=== PATIENT | male | born 2000 | race Two or more races ===

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

== ENCOUNTER 2022-06-14 12:47 | Emergency (ER) | payer MEDICAID, OTHER ==
[~2022-06-14] VITALS: Ht 180.3 cm; Wt 115.9 kg
[2022-06-14 13:02] VITALS: BP 140/90
== END 2022-06-14 14:51 | disposition home or self-care (01) ==
LOC: ER 12:47
DX: M54.59 Other low back pain (principal); J45.909 Unspecified asthma, uncomplicated; F41.9 Anxiety disorder, unspecified; Z87.81 Personal history of (healed) traumatic fracture; Z79.899 Other long term (current) drug therapy; W10.8XXA Fall (on) (from) other stairs and steps, initial encounter; Y93.89 Activity, other specified; Y92.89 Other specified places as the place of occurrence of the external cause; Y99.8 Other external cause status
CPT/HCPCS: 99284

== ENCOUNTER 2023-06-22 22:35 | Emergency (ER) | payer MEDICAID ==
[~2023-06-22] VITALS: Ht 180.3 cm; Wt 120.5 kg
[~2023-06-22 22:35] MED LIST changes: +ALBU6.7H14 INH; -ALBU6.7H9 INH
[2023-06-22] MEDS ORDERED: normal saline 1000ml 1,000 ML IV ONE (23:35)
[2023-06-22] MEDS ORDERED: piperacillin/tazo 3.375gm/50ml 50 ML IV ONE (23:35)
[2023-06-23 00:05] LABS: BASOPHILS # (AUTO) 0.2 X10'3 (0-0.2); BASOPHILS % (AUTO) 0.9 % (0-1); EOSINOPHILS # (AUTO) 0.3 X10'3 (0-0.9); HEMATOCRIT 40.9 % (42.0-52.0); HEMOGLOBIN 13.9 g/dl (14.0-17.9); LYMPHOCYTES # (AUTO) 2.5 X10'3 (1.1-4.8); MEAN CORPUSCULAR HEMOGLOBIN 29.8 PG (27.0-31.0); MEAN CORPUSCULAR VOLUME 87.6 FL (78-98); MEAN PLATELET VOLUME 7.3 FL (7.4-10.4); MONOCYTES # (AUTO) 1.1 X10'3 (0-0.9); MONOCYTES % (AUTO) 6.8 % (2-12); NEUTROPHILS # (AUTO) 12.7 X10'3 (1.8-7.7); NEUTROPHILS % (AUTO) 75.3 % (42-75); PLATELET COUNT 369 X10'3 (140-440); RED BLOOD COUNT 4.67 X10'6 (4.70-6.10); WHITE BLOOD COUNT 16.9 X10'3 (4.5-11.0)
[2023-06-23 00:09] LABS: ALANINE AMINOTRANSFERASE 19 U/L (12-78); ALBUMIN 3.2 G/DL (3.4-5.0); ALBUMIN/GLOBULIN RATIO 0.5 (1.1-1.5); ALKALINE PHOSPHATASE 81 IU/L (46-116); ANION GAP 12 (8-16); ASPARTATE AMINO TRANSFERASE 10 U/L (10-37); BILIRUBIN,TOTAL 0.4 MG/DL (0.1-1.0); BLOOD UREA NITROGEN 8 MG/DL (7-18); BUN/CREATININE RATIO 8.8 (10.0-20.0); CALCIUM 9.4 MG/DL (8.5-10.1); CHLORIDE 103 MMOL/L (99-107); CREATININE 0.91 MG/DL (0.60-1.10); GLUCOSE 91 MG/DL (70-104); LIPASE 51 U/L (73-393); POTASSIUM 3.4 MMOL/L (3.5-5.1); SODIUM 138 MMOL/L (135-145); TOTAL CARBON DIOXIDE 23.3 MMOL/L (24-32); TOTAL PROTEIN 9.5 G/DL (6.4-8.2); eGFR > 90 ML/MIN
[2023-06-23 01:30] VITALS: O2SAT 92
[2023-06-23] MEDS ORDERED: ceFAZolin 1gm IM kit IM ONE (02:30)
[2023-06-23 02:40] VITALS: BP 133/81; PULSE 75
[2023-06-23 03:18] LABS: CLARITY,URINE CLEAR (Clear); COLOR,URINE YELLOW (Yellow); GLUCOSE, URINE NEGATIVE (Neg); KETONES,URINE >=80 mg/dl (Neg); LEUKOCYTE ESTERASE ,URINE NEGATIVE (Neg); NITRITES, URINE NEGATIVE (Neg); OCCULT BLOOD,URINE TRACE-INTACT (Neg); PH,URINE 6.5 (4.8-8.0); PROTEIN,URINE TRACE mg/dl (Neg)
[2023-06-23 03:28] LABS: UA COLLECTION TYPE CLN CATCH MIDSTREAM
[2023-06-23 03:34] LABS: WBC,URINE 0-4 /HPF (0-4)
[2023-06-23 03:35] LABS: BACTERIA,URINE FEW /HPF (Neg); MUCUS STRANDS FEW /LPF (Neg); SQUAMOUS EPITHELIAL CELL,UR FEW /LPF (FEW)
[2023-06-23 03:52] VITALS: RESP 14
[2023-06-23 03:54] VITALS: TEMP 97.5
== END 2023-06-23 03:56 | disposition home or self-care (01) ==
LOC: ER 22:36
DX: D72.829 Elevated white blood cell count, unspecified (principal); J45.909 Unspecified asthma, uncomplicated; F41.9 Anxiety disorder, unspecified; Z87.81 Personal history of (healed) traumatic fracture; Z79.899 Other long term (current) drug therapy
CPT/HCPCS: 36415; 74176; 76700; 80053; 81001; 83605; 83690; 84145; 85025; 87040; 96365; 96366; 99285; J2543; J7030

== ENCOUNTER 2023-09-03 22:20 | Emergency (ER) | payer OTHER, MEDICAID ==
[~2023-09-03] VITALS: Ht 180.3 cm; Wt 120.5 kg
[2023-09-04 00:27] VITALS: BP 134/87; PULSE 90; RESP 18; TEMP 98.1; O2SAT 98
== END 2023-09-04 01:40 | disposition left against medical advice (07) ==
LOC: ER 22:20
DX: M25.512 Pain in left shoulder (principal); J45.909 Unspecified asthma, uncomplicated; Z79.899 Other long term (current) drug therapy; V89.2XXA Person injured in unspecified motor-vehicle accident, traffic, initial encounter; Y93.89 Activity, other specified; Y92.89 Other specified places as the place of occurrence of the external cause; Y99.8 Other external cause status
CPT/HCPCS: 70450; 72125; 73030; 99284

== ENCOUNTER 2023-11-21 01:44 | Emergency (ER) | payer MEDICAID ==
[~2023-11-21] VITALS: Ht 180.3 cm; Wt 115.4 kg
[2023-11-21 01:52] VITALS: BP 135/91; PULSE 102; RESP 16; TEMP 98.2; O2SAT 98
== END 2023-11-21 04:33 | disposition left against medical advice (07) ==
LOC: ER 01:45
DX: M54.6 Pain in thoracic spine (principal); Z53.21 Procedure and treatment not carried out due to patient leaving prior to being seen by health care provider
CPT/HCPCS: 99281

== ENCOUNTER 2023-12-04 21:50 | Emergency (ER) | payer MEDICAID ==
[~2023-12-04] VITALS: Ht 180.3 cm; Wt 115.0 kg
[2023-12-04 22:04] VITALS: BP 108/81; PULSE 108; RESP 20; TEMP 98; O2SAT 99
[2023-12-04 22:26] LABS: RED CELL DISTRIBUTION WIDTH 13.9 % (11.5-14.5)
[2023-12-04 22:28] LABS: BASOPHILS # (AUTO) 0.1 X10'3 (0-0.2); BASOPHILS % (AUTO) 0.6 % (0-1); EOSINOPHILS # (AUTO) 0.8 X10'3 (0-0.9); EOSINOPHILS % (AUTO) 4.2 % (0-6); HEMOGLOBIN 15.1 g/dl (14.0-17.9); LYMPHOCYTES # (AUTO) 2.9 X10'3 (1.1-4.8); LYMPHOCYTES % (AUTO) 15.4 % (21-51); MEAN CORPUSCULAR HEMOGLOBIN 30.5 PG (27.0-31.0); MEAN CORPUSCULAR HGB CONC 34.3 g/dL (33.0-36.5); MEAN CORPUSCULAR VOLUME 88.8 FL (78-98); MEAN PLATELET VOLUME 7.1 FL (7.4-10.4); MONOCYTES # (AUTO) 1.2 X10'3 (0-0.9); MONOCYTES % (AUTO) 6.4 % (2-12); NEUTROPHILS # (AUTO) 13.6 X10'3 (1.8-7.7); NEUTROPHILS % (AUTO) 73.4 % (42-75); PLATELET COUNT 424 X10'3 (140-440); RED BLOOD COUNT 4.96 X10'6 (4.70-6.10); WHITE BLOOD COUNT 18.6 X10'3 (4.5-11.0)
[2023-12-04 22:39] LABS: ALANINE AMINOTRANSFERASE 26 U/L (12-78); ALBUMIN 3.1 G/DL (3.4-5.0); ALBUMIN/GLOBULIN RATIO 0.4 (1.1-1.5); ALKALINE PHOSPHATASE 103 IU/L (46-116); ANION GAP 8 (8-16); ASPARTATE AMINO TRANSFERASE 16 U/L (10-37); BILIRUBIN,TOTAL 0.3 MG/DL (0.1-1.0); BLOOD UREA NITROGEN 7 MG/DL (7-18); BUN/CREATININE RATIO 8.1 (10.0-20.0); CALCIUM 9.2 MG/DL (8.5-10.1); CHLORIDE 102 MMOL/L (99-107); CREATININE 0.86 MG/DL (0.60-1.10); GLUCOSE 100 MG/DL (70-104); LIPASE 29 U/L (16-77); POTASSIUM 3.6 MMOL/L (3.5-5.1); SODIUM 136 MMOL/L (135-145); TOTAL CARBON DIOXIDE 26.3 MMOL/L (24-32); eCRCL 144 ML/MIN; eGFR > 90 ML/MIN
[2023-12-04 22:40] LABS: BILIRUBIN,URINE SMALL (Neg); GLUCOSE, URINE NEGATIVE (Neg); KETONES,URINE NEGATIVE (Neg); LEUKOCYTE ESTERASE ,URINE NEGATIVE (Neg); NITRITES, URINE NEGATIVE (Neg); OCCULT BLOOD,URINE TRACE-INTACT (Neg); PROTEIN,URINE TRACE mg/dl (Neg); UROBILINOGEN,URINE 0.2 E.U/dL (0.2-1.0)
[2023-12-04 22:50] LABS: COLOR,URINE DARK YELLOW (Yellow); UA COLLECTION TYPE CLN CATCH MIDSTREAM
[2023-12-04 22:51] LABS: CLARITY,URINE SLIGHTLY CLOUDY (Clear)
[2023-12-04 22:55] LABS: BACTERIA,URINE 2+ /HPF (Neg); MUCUS STRANDS MANY /LPF (Neg); SQUAMOUS EPITHELIAL CELL,UR MANY /LPF (FEW); WBC,URINE 0-4 /HPF (0-4)
== END 2023-12-05 03:00 | disposition left against medical advice (07) ==
LOC: ER 21:51
DX: R10.9 Unspecified abdominal pain (principal); R11.0 Nausea; Z53.21 Procedure and treatment not carried out due to patient leaving prior to being seen by health care provider
CPT/HCPCS: 36415; 74018; 80053; 81001; 83690; 85025; 99281

== ENCOUNTER 2024-01-17 17:32 | Emergency (ER) | payer MEDICAID ==
[~2024-01-17] VITALS: Ht 180.3 cm; Wt 112.2 kg
[2024-01-17 19:35] VITALS: BP 137/93; PULSE 100; RESP 18; TEMP 98; O2SAT 99
== END 2024-01-17 19:37 | disposition home or self-care (01) ==
LOC: ER 17:33
DX: R10.10 Upper abdominal pain, unspecified (principal); R20.0 Anesthesia of skin; J45.909 Unspecified asthma, uncomplicated; R58 Hemorrhage, not elsewhere classified; Z79.899 Other long term (current) drug therapy
CPT/HCPCS: 99281

== ENCOUNTER 2024-01-30 23:03 | Emergency (ER) | payer MEDICAID ==
[~2024-01-30] VITALS: Ht 180.3 cm; Wt 110.0 kg
[2024-01-30 23:11] VITALS: BP 142/89; PULSE 108; RESP 18; TEMP 98.6; O2SAT 99
[2024-01-30] MEDS ORDERED: MELO-100 PO (23:21)
[2024-01-30] MEDS ORDERED: DICL20GE (23:21)
[2024-01-30] MEDS: ketorolac trometh inj. 60 MG/2 ML VIAL IM ONE (23:42)
== END 2024-01-31 00:01 | disposition home or self-care (01) ==
LOC: ER 23:03
DX: M25.561 Pain in right knee (principal); J45.909 Unspecified asthma, uncomplicated; Z79.899 Other long term (current) drug therapy
CPT/HCPCS: 73564; 96372; 99283; J1885

== ENCOUNTER 2024-02-04 19:53 | Emergency (ER) | payer MEDICAID ==
[~2024-02-04] VITALS: Ht 180.3 cm; Wt 110.0 kg
[~2024-02-04 19:53] MED LIST changes: +DICL20GE; +MELO-100 PO
[2024-02-04 20:00] VITALS: BP 142/60; PULSE 125; RESP 18; TEMP 99.4; O2SAT 98
[2024-02-04] MEDS ORDERED: acetaminophen 1,000mg/100ml IV 100 ML IV ONE (20:45)
[2024-02-04] MEDS: acetaminophen 325mg tablet PO ONE (20:54)
== END 2024-02-04 21:31 | disposition home or self-care (01) ==
LOC: ER 19:54
DX: U07.1 COVID-19 (principal); J45.909 Unspecified asthma, uncomplicated; F41.9 Anxiety disorder, unspecified; Z87.81 Personal history of (healed) traumatic fracture; Z79.899 Other long term (current) drug therapy
CPT/HCPCS: 36415; 87502; 87503; 87811; 99283

== ENCOUNTER 2024-04-14 23:00 | Emergency (ER) | payer MEDICAID ==
[~2024-04-14] VITALS: Ht 180.3 cm; Wt 113.9 kg
[2024-04-14 23:07] VITALS: BP 122/93; PULSE 111; RESP 16; TEMP 98.1; O2SAT 97
[2024-04-14] MEDS: meclizine 12.5mg tablet PO ONE (23:26)
[2024-04-14] MEDS ORDERED: MECL-302 PO (23:37)
== END 2024-04-14 23:47 | disposition home or self-care (01) ==
LOC: ER 23:01
DX: R42 Dizziness and giddiness (principal); J45.909 Unspecified asthma, uncomplicated
CPT/HCPCS: 99282; J8597

== ENCOUNTER 2024-05-18 16:31 | Emergency (ER) | payer MEDICAID ==
[~2024-05-18] VITALS: Ht 180.3 cm; Wt 112.0 kg
[~2024-05-18 16:31] MED LIST changes: +MECL-302 PO
[2024-05-18 16:39] VITALS: BP 145/90; PULSE 113; RESP 18; TEMP 97.6; O2SAT 95
== END 2024-05-18 20:20 | disposition left against medical advice (07) ==
LOC: ER 16:32
DX: R07.81 Pleurodynia (principal); Z53.21 Procedure and treatment not carried out due to patient leaving prior to being seen by health care provider

== ENCOUNTER 2024-08-19 20:52 | Emergency (ER) | payer MEDICAID ==
[~2024-08-19] VITALS: Ht 180.3 cm; Wt 106.9 kg
[2024-08-19] MEDS ORDERED: iohexol 300mg/ml 100ml inj. ONE (23:19)
[2024-08-19 23:27] LABS: BASOPHILS # (AUTO) 0.2 X10'3 (0-0.2); BASOPHILS % (AUTO) 1.2 % (0-1); EOSINOPHILS # (AUTO) 0.3 X10'3 (0-0.9); EOSINOPHILS % (AUTO) 1.3 % (0-6); HEMATOCRIT 41.1 % (42.0-52.0); HEMOGLOBIN 13.4 g/dl (14.0-17.9); LYMPHOCYTES # (AUTO) 2.9 X10'3 (1.1-4.8); LYMPHOCYTES % (AUTO) 13.8 % (21-51); MEAN CORPUSCULAR HEMOGLOBIN 28.6 PG (27.0-31.0); MEAN CORPUSCULAR HGB CONC 32.5 g/dL (33.0-36.5); MEAN CORPUSCULAR VOLUME 87.8 FL (78-98); MEAN PLATELET VOLUME 6.7 FL (7.4-10.4); MONOCYTES % (AUTO) 4.9 % (2-12); NEUTROPHILS # (AUTO) 16.7 X10'3 (1.8-7.7); NEUTROPHILS % (AUTO) 78.8 % (42-75); PLATELET COUNT 501 X10'3 (140-440); RED BLOOD COUNT 4.68 X10'6 (4.70-6.10); RED CELL DISTRIBUTION WIDTH 14.9 % (11.5-14.5); WHITE BLOOD COUNT 21.2 X10'3 (4.5-11.0)
[2024-08-19 23:36] LABS: ALANINE AMINOTRANSFERASE 10 U/L (12-78); ALBUMIN 3.2 G/DL (3.4-5.0); ALBUMIN/GLOBULIN RATIO 0.5 (1.1-1.5); ALKALINE PHOSPHATASE 79 IU/L (46-116); ANION GAP 11 (8-16); ASPARTATE AMINO TRANSFERASE 13 U/L (10-37); BILIRUBIN,TOTAL 0.4 MG/DL (0.1-1.0); BLOOD UREA NITROGEN 10 MG/DL (7-18); BUN/CREATININE RATIO 11.5 (10.0-20.0); CALCIUM 9.3 MG/DL (8.5-10.1); CHLORIDE 101 MMOL/L (99-107); CREATININE 0.87 MG/DL (0.60-1.10); GLUCOSE 79 MG/DL (70-104); LIPASE 22 U/L (16-77); POTASSIUM 3.8 MMOL/L (3.5-5.1); SODIUM 137 MMOL/L (135-145); TOTAL CARBON DIOXIDE 25.2 MMOL/L (24-32); TOTAL PROTEIN 9.7 G/DL (6.4-8.2); eCRCL 142 ML/MIN; eGFR > 90 ML/MIN
[2024-08-19] MEDS: normal saline 1000ml 1,000 ML IV STA (23:44)
[2024-08-19] MEDS: ondansetron/PF 4mg/2ml inj IV ONE (23:44)
[2024-08-19] MEDS: mag hydrox/Alum hydrox/simeth 30ml oral suspension PO STA (23:44)
[2024-08-19] MEDS: ondansetron/PF 4mg/2ml inj IV STA (23:45)
[2024-08-19] MEDS: LIDOcaine 2% Viscous 15ml cup TP STA (23:45)
[2024-08-20] MEDS: piperacillin/tazo 4.5gm/100ml 100 ML IV SCH
[2024-08-20] MEDS: diphenhydrAMINE 50 mg/ml inj IV STA (00:16)
[2024-08-20 00:40] LABS: D-DIMER 0.87 MG/L FEU (0-0.50)
[2024-08-20] MEDS: HYDROmorphone 1 mg/ml syringe IV ONE (00:46)
[2024-08-20] MEDS: normal saline 1000ml 1,000 ML IV ONE (00:49)
[2024-08-20] MEDS: ketorolac trometh 30MG/ML vial 30 MG/ML VIAL IV ONE (00:50)
[2024-08-20] MEDS ORDERED: SUCR1TAB34 PO (01:28)
[2024-08-20 01:30] VITALS: BP 136/84; PULSE 90; RESP 18; TEMP 98.1; O2SAT 98
[2024-08-20] MEDS ORDERED: normal saline 1000ml 1,000 ML IV ONE (01:35)
[2024-08-20] MEDS ORDERED: TETanus/Pertussis (Acell)/Diphther VAC/PF (Tdap-Adult) 0.5ml syringe IMVAC ONE (01:35)
[2024-08-20] MEDS ORDERED: HYDROmorphone 1 mg/ml syringe IV ONE (01:35)
[2024-08-20 01:46] LABS: BASOPHILS # (AUTO) 0.2 X10'3 (0-0.2); BASOPHILS % (AUTO) 0.8 % (0-1); EOSINOPHILS # (AUTO) 0.3 X10'3 (0-0.9); EOSINOPHILS % (AUTO) 1.5 % (0-6); HEMATOCRIT 41.1 % (42.0-52.0); HEMOGLOBIN 13.3 g/dl (14.0-17.9); LYMPHOCYTES # (AUTO) 2.9 X10'3 (1.1-4.8); LYMPHOCYTES % (AUTO) 13.2 % (21-51); MEAN CORPUSCULAR HEMOGLOBIN 28.5 PG (27.0-31.0); MEAN CORPUSCULAR HGB CONC 32.5 g/dL (33.0-36.5); MEAN CORPUSCULAR VOLUME 87.6 FL (78-98); MEAN PLATELET VOLUME 7.4 FL (7.4-10.4); MONOCYTES # (AUTO) 1.1 X10'3 (0-0.9); MONOCYTES % (AUTO) 5.1 % (2-12); NEUTROPHILS # (AUTO) 17.5 X10'3 (1.8-7.7); NEUTROPHILS % (AUTO) 79.4 % (42-75); PLATELET COUNT 502 X10'3 (140-440); RED BLOOD COUNT 4.69 X10'6 (4.70-6.10); RED CELL DISTRIBUTION WIDTH 14.9 % (11.5-14.5)
[2024-08-20 01:55] LABS: CREATINE KINASE 42 U/L (39-308)
[2024-08-20 01:56] LABS: ETHANOL < 10 MG/DL (<10)
[2024-08-20] MEDS ORDERED: ceFAZolin/D5W- 1GM premix 50 ML IV SCH (08:00)
== END 2024-08-20 01:36 | disposition home or self-care (01) ==
LOC: ER 20:53 → EEVIPCON 20:53 → ER 08-20 01:36
DX: R10.13 Epigastric pain (principal); R10.11 Right upper quadrant pain; R11.2 Nausea with vomiting, unspecified; J45.909 Unspecified asthma, uncomplicated; F41.9 Anxiety disorder, unspecified; F17.200 Nicotine dependence, unspecified, uncomplicated; Z79.899 Other long term (current) drug therapy; Z79.1 Long term (current) use of non-steroidal anti-inflammatories (NSAID)
CPT/HCPCS: 36415; 71046; 74177; 80053; 80320; 82550; 83605; 83690; 85025; 85379; 87040; 87502; 87503; 96361; 96374; 96375; 99285; J1200; J1885; J2405; J7030; Q9967

== ENCOUNTER 2024-08-31 09:01 | Emergency (ER) | payer MEDICAID ==
[~2024-08-31] VITALS: Ht 180.3 cm; Wt 111.2 kg
[~2024-08-31 09:01] MED LIST changes: +SUCR1TAB34 PO
[2024-08-31 09:10] VITALS: TEMP 97.8
[2024-08-31] MEDS ORDERED: LIDO700A32 TOP (10:45)
[2024-08-31] MEDS ORDERED: [UNRECOGNIZED DRUG - CODE] PO (10:45)
[2024-08-31] MEDS ORDERED: PRED20TA PO (10:45)
[2024-08-31] MEDS: dexamethasone sod phosphate 10mg/ml inj IM STA (11:24)
[2024-08-31] MEDS: cyclobenzaprine 10mg tablet PO ONE (11:24)
[2024-08-31] MEDS ORDERED: LIDOcaine 5% patch TP SCH (11:31)
[2024-08-31 11:43] VITALS: BP 118/76; PULSE 84; RESP 18; O2SAT 100
== END 2024-08-31 11:47 | disposition home or self-care (01) ==
LOC: ER 09:02
DX: G89.29 Other chronic pain (principal); M54.6 Pain in thoracic spine; M54.50 Low back pain, unspecified; J45.909 Unspecified asthma, uncomplicated; Z79.899 Other long term (current) drug therapy; Z79.2 Long term (current) use of antibiotics; Z79.1 Long term (current) use of non-steroidal anti-inflammatories (NSAID)
CPT/HCPCS: 72070; 72100; 96372; 99284; J1100

== ENCOUNTER 2024-10-21 18:59 | Emergency (ER) | payer MEDICAID ==
[~2024-10-21] VITALS: Ht 180.3 cm; Wt 115.9 kg
[~2024-10-21 18:59] MED LIST changes: +LIDO700A32 TOP; +[UNRECOGNIZED DRUG - CODE] PO
[2024-10-21 19:07] VITALS: BP 139/82; PULSE 118; RESP 18; TEMP 99.3; O2SAT 97
[2024-10-21 19:57] LABS: BASOPHILS # (AUTO) 0.2 X10'3 (0-0.2); WHITE BLOOD COUNT 20.5 X10'3 (4.5-11.0)
[2024-10-21 19:59] LABS: BASOPHILS % (AUTO) 0.9 % (0-1); EOSINOPHILS # (AUTO) 0.5 X10'3 (0-0.9); EOSINOPHILS % (AUTO) 2.6 % (0-6); HEMOGLOBIN 13.9 g/dl (14.0-17.9); LYMPHOCYTES # (AUTO) 2.5 X10'3 (1.1-4.8); MEAN CORPUSCULAR HEMOGLOBIN 29.5 PG (27.0-31.0); MEAN CORPUSCULAR HGB CONC 33.8 g/dL (33.0-36.5); MEAN CORPUSCULAR VOLUME 87.4 FL (78-98); MEAN PLATELET VOLUME 7.1 FL (7.4-10.4); MONOCYTES % (AUTO) 5.1 % (2-12); NEUTROPHILS # (AUTO) 16.2 X10'3 (1.8-7.7); NEUTROPHILS % (AUTO) 79.4 % (42-75); PLATELET COUNT 543 X10'3 (140-440); RED BLOOD COUNT 4.69 X10'6 (4.70-6.10); RED CELL DISTRIBUTION WIDTH 14.4 % (11.5-14.5)
[2024-10-21 20:12] LABS: ALANINE AMINOTRANSFERASE 20 U/L (12-78); ALBUMIN 3.1 G/DL (3.4-5.0); ALBUMIN/GLOBULIN RATIO 0.4 (1.1-1.5); ALKALINE PHOSPHATASE 83 IU/L (46-116); ANION GAP 7 (8-16); ASPARTATE AMINO TRANSFERASE 16 U/L (10-37); BILIRUBIN,TOTAL 0.3 MG/DL (0.1-1.0); BLOOD UREA NITROGEN 12 MG/DL (7-18); BUN/CREATININE RATIO 12.8 (10.0-20.0); CHLORIDE 101 MMOL/L (99-107); CREATININE 0.94 MG/DL (0.60-1.10); GLUCOSE 100 MG/DL (70-104); LIPASE 31 U/L (16-77); POTASSIUM 3.7 MMOL/L (3.5-5.1); SODIUM 139 MMOL/L (135-145); TOTAL CARBON DIOXIDE 30.6 MMOL/L (24-32); TOTAL PROTEIN 10.4 G/DL (6.4-8.2); eCRCL 131 ML/MIN; eGFR > 90 ML/MIN
== END 2024-10-21 21:36 | disposition left against medical advice (07) ==
LOC: ER 19:00
DX: R10.11 Right upper quadrant pain (principal); R04.2 Hemoptysis; Z53.21 Procedure and treatment not carried out due to patient leaving prior to being seen by health care provider
CPT/HCPCS: 80053; 83690; 85025

== ENCOUNTER 2024-11-26 21:52 | Emergency (ER) | payer MEDICAID ==
[~2024-11-26] VITALS: Ht 180.3 cm; Wt 109.9 kg
[2024-11-26 22:18] LABS: BILIRUBIN,URINE NEGATIVE (Neg); CLARITY,URINE SLIGHTLY CLOUDY (Clear); COLOR,URINE YELLOW (Yellow); GLUCOSE, URINE NEGATIVE (Neg); KETONES,URINE NEGATIVE (Neg); LEUKOCYTE ESTERASE ,URINE NEGATIVE (Neg); NITRITES, URINE NEGATIVE (Neg); OCCULT BLOOD,URINE SMALL (Neg); PROTEIN,URINE 30 mg/dl (Neg); UROBILINOGEN,URINE 0.2 E.U/dL (0.2-1.0)
[2024-11-26 22:18] LABS: BASOPHILS # (AUTO) 0.1 X10'3 (0-0.2); BASOPHILS % (AUTO) 0.6 % (0-1); EOSINOPHILS # (AUTO) 0.5 X10'3 (0-0.9); EOSINOPHILS % (AUTO) 2.6 % (0-6); HEMOGLOBIN 12.9 g/dl (14.0-17.9); LYMPHOCYTES # (AUTO) 2.9 X10'3 (1.1-4.8); LYMPHOCYTES % (AUTO) 14.3 % (21-51); MEAN CORPUSCULAR HEMOGLOBIN 29.9 PG (27.0-31.0); MEAN CORPUSCULAR HGB CONC 34.8 g/dL (33.0-36.5); MEAN CORPUSCULAR VOLUME 85.9 FL (78-98); MEAN PLATELET VOLUME 6.7 FL (7.4-10.4); MONOCYTES # (AUTO) 1.2 X10'3 (0-0.9); MONOCYTES % (AUTO) 5.9 % (2-12); NEUTROPHILS # (AUTO) 15.7 X10'3 (1.8-7.7); NEUTROPHILS % (AUTO) 76.6 % (42-75); PLATELET COUNT 531 X10'3 (140-440); RED BLOOD COUNT 4.31 X10'6 (4.70-6.10); RED CELL DISTRIBUTION WIDTH 13.5 % (11.5-14.5); WHITE BLOOD COUNT 20.5 X10'3 (4.5-11.0)
[2024-11-26 22:19] LABS: UA COLLECTION TYPE VOIDED
[2024-11-26 22:27] LABS: RBC,URINE 0-2 /HPF (0-2); WBC,URINE 0-4 /HPF (0-4)
[2024-11-26 22:28] LABS: BACTERIA,URINE 2+ /HPF (Neg); MUCUS STRANDS MODERATE /LPF (Neg); SQUAMOUS EPITHELIAL CELL,UR MANY /LPF (FEW)
[2024-11-26 22:32] LABS: ALANINE AMINOTRANSFERASE 25 U/L (12-78); ALBUMIN 2.9 G/DL (3.4-5.0); ALBUMIN/GLOBULIN RATIO 0.4 (1.1-1.5); ALKALINE PHOSPHATASE 91 IU/L (46-116); ANION GAP 8 (8-16); ASPARTATE AMINO TRANSFERASE 11 U/L (10-37); BILIRUBIN,TOTAL 0.3 MG/DL (0.1-1.0); BLOOD UREA NITROGEN 10 MG/DL (7-18); BUN/CREATININE RATIO 10.2 (10.0-20.0); CHLORIDE 104 MMOL/L (99-107); CREATININE 0.98 MG/DL (0.60-1.10); GLUCOSE 100 MG/DL (70-104); LIPASE 29 U/L (16-77); POTASSIUM 3.7 MMOL/L (3.5-5.1); SODIUM 137 MMOL/L (135-145); TOTAL CARBON DIOXIDE 24.7 MMOL/L (24-32); TOTAL PROTEIN 10.2 G/DL (6.4-8.2); eCRCL 125 ML/MIN; eGFR > 90 ML/MIN
[2024-11-27] MEDS ORDERED: OMEP40CA21 PO (00:10)
[2024-11-27 01:00] LABS: URINE AMPHETAMINE SCREEN NEGATIVE (Neg); URINE BARBITUATE SCREEN NEGATIVE (Neg); URINE BENZODIAZEPINES SCREEN NEGATIVE (Neg); URINE CANNABINOID SCREEN NEGATIVE (Neg); URINE COCAINE SCREEN NEGATIVE (Neg); URINE METHADONE SCREEN NEGATIVE (Neg); URINE OPIATE SCREEN NEGATIVE (Neg); URINE PHENCYCLIDINE SCREEN NEGATIVE (Neg)
[2024-11-27] MEDS: famotidine 20mg tablet PO ONE (01:10)
[2024-11-27] MEDS: mag hydrox/Alum hydrox/simeth 30ml oral suspension PO ONE (01:10)
[2024-11-27 01:17] VITALS: BP 100/87; PULSE 99; RESP 15; TEMP 97.3; O2SAT 100
== END 2024-11-27 01:18 | disposition home or self-care (01) ==
LOC: ER 21:52
DX: R10.12 Left upper quadrant pain (principal); R11.2 Nausea with vomiting, unspecified; J45.909 Unspecified asthma, uncomplicated; F41.9 Anxiety disorder, unspecified; Z91.041 Radiographic dye allergy status
CPT/HCPCS: 36415; 74176; 80053; 80305; 81001; 83605; 83690; 85025; 99284; 99285

== ENCOUNTER 2024-12-06 22:53 | Emergency (ER) | payer MEDICAID ==
[~2024-12-06] VITALS: Ht 180.3 cm; Wt 110.9 kg
[~2024-12-06 22:53] MED LIST changes: +OMEP40CA21 PO
[2024-12-06 23:25] LABS: BILIRUBIN,URINE NEGATIVE (Neg); CLARITY,URINE CLEAR (Clear); COLOR,URINE YELLOW (Yellow); GLUCOSE, URINE NEGATIVE (Neg); KETONES,URINE NEGATIVE (Neg); LEUKOCYTE ESTERASE ,URINE NEGATIVE (Neg); NITRITES, URINE NEGATIVE (Neg); OCCULT BLOOD,URINE TRACE-INTACT (Neg); PROTEIN,URINE NEGATIVE (Neg); UROBILINOGEN,URINE 0.2 E.U/dL (0.2-1.0)
[2024-12-06 23:26] LABS: BASOPHILS # (AUTO) 0.2 X10'3 (0-0.2); EOSINOPHILS # (AUTO) 0.8 X10'3 (0-0.9); MONOCYTES # (AUTO) 1.1 X10'3 (0-0.9)
[2024-12-06 23:27] LABS: BASOPHILS % (AUTO) 0.8 % (0-1); EOSINOPHILS % (AUTO) 4.3 % (0-6); HEMATOCRIT 37.8 % (42.0-52.0); HEMOGLOBIN 12.7 g/dl (14.0-17.9); LYMPHOCYTES # (AUTO) 2.7 X10'3 (1.1-4.8); LYMPHOCYTES % (AUTO) 13.9 % (21-51); MEAN CORPUSCULAR HEMOGLOBIN 29.1 PG (27.0-31.0); MEAN CORPUSCULAR HGB CONC 33.7 g/dL (33.0-36.5); MEAN CORPUSCULAR VOLUME 86.2 FL (78-98); MEAN PLATELET VOLUME 6.6 FL (7.4-10.4); MONOCYTES % (AUTO) 5.6 % (2-12); NEUTROPHILS # (AUTO) 14.7 X10'3 (1.8-7.7); NEUTROPHILS % (AUTO) 75.4 % (42-75); PLATELET COUNT 542 X10'3 (140-440); RED BLOOD COUNT 4.39 X10'6 (4.70-6.10); RED CELL DISTRIBUTION WIDTH 13.6 % (11.5-14.5); WHITE BLOOD COUNT 19.4 X10'3 (4.5-11.0)
[2024-12-06 23:32] LABS: UA COLLECTION TYPE CLN CATCH MIDSTREAM
[2024-12-06 23:33] LABS: SQUAMOUS EPITHELIAL CELL,UR FEW /LPF (FEW)
[2024-12-06 23:34] LABS: BACTERIA,URINE FEW /HPF (Neg); MUCUS STRANDS FEW /LPF (Neg); RBC,URINE 0-2 /HPF (0-2); WBC,URINE 0-4 /HPF (0-4)
[2024-12-06 23:39] LABS: ALANINE AMINOTRANSFERASE 26 U/L (12-78); ALBUMIN 2.7 G/DL (3.4-5.0); ALBUMIN/GLOBULIN RATIO 0.4 (1.1-1.5); ALKALINE PHOSPHATASE 101 IU/L (46-116); ANION GAP 10 (8-16); ASPARTATE AMINO TRANSFERASE 18 U/L (10-37); BILIRUBIN,TOTAL 0.2 MG/DL (0.1-1.0); BLOOD UREA NITROGEN 10 MG/DL (7-18); BUN/CREATININE RATIO 11.9 (10.0-20.0); CALCIUM 8.8 MG/DL (8.5-10.1); CHLORIDE 104 MMOL/L (99-107); CREATININE 0.84 MG/DL (0.60-1.10); GLUCOSE 109 MG/DL (70-104); POTASSIUM 3.7 MMOL/L (3.5-5.1); SODIUM 139 MMOL/L (135-145); TOTAL CARBON DIOXIDE 25.3 MMOL/L (24-32); TOTAL PROTEIN 9.5 G/DL (6.4-8.2); eCRCL 146 ML/MIN; eGFR > 90 ML/MIN
[2024-12-06] MEDS: ibuprofen tablet 400 MG TABLET PO ONE (23:42)
[2024-12-06] MEDS: acetaminophen 325mg tablet PO ONE (23:42)
[2024-12-06 23:44] LABS: LIPASE 29 U/L (16-77)
[2024-12-07 00:38] VITALS: BP 133/112; PULSE 98; RESP 18; TEMP 98.6; O2SAT 99
== END 2024-12-07 00:43 | disposition home or self-care (01) ==
LOC: ER 22:53
DX: R09.1 Pleurisy (principal); J45.909 Unspecified asthma, uncomplicated; F41.9 Anxiety disorder, unspecified; Z91.041 Radiographic dye allergy status
CPT/HCPCS: 36415; 71045; 80053; 81001; 83690; 84484; 85025; 93005; 99285

== ENCOUNTER 2025-03-21 05:35 | Emergency (ER) | payer MEDICAID ==
[~2025-03-21] VITALS: Ht 180.3 cm; Wt 108.5 kg
[~2025-03-21 05:35] MED LIST changes: -OMEP40CA21 PO
[2025-03-21 05:37] VITALS: TEMP 97.8
--- NOTE | 2025-03-21 05:43 | ELECTROCARDIOGRAPH REPORT ---
[facility] Test Date: 2025-03-21 Test Time: 05:41:32 Pat Name: [facility] Department: EMERGENCY ROOM [id number] Room: Gender: M Special Procedures Tech: STUDENT : 2000 Requested By: SURI RHODES Order Number: [id number] Reading MD: Dr. Terry Wilson Measurements Intervals [place]y Rate: 132 P: 80 [place]: 140 QRS: 95 QRSD: 102 T: 73 QT: 306 QTc: 454 Interpretive Statements Sinus tachycardia Borderline right axis deviation ST elev, probable normal early repol pattern Baseline wander in lead(s) II,III,aVF,V4,V5,V6 Electronically Signed On 03-22-2025 19:03:[address] Terry Wilson Please click the below link to view image of tracing.
[2025-03-21] MEDS: albuterol 2.5 MG/3 ML nebule NEB ONE (05:54)
[2025-03-21 05:57] VITALS: PULSE 126; RESP 18; O2SAT 97
--- NOTE | 2025-03-21 06:05 | RADIOLOGY REPORT ---
CHEST RADIOGRAPH Indication: CP Technique: Single frontal view of the chest was obtained COMPARISON: DI CHEST,SINGLE VIEW on DOS: 12/06/24 FINDINGS: Lines and Tubes: None Lungs: Clear Pleura: No effusion. No pneumothorax. Cardiomediastinal contours: Unremarkable Bones: Unremarkable IMPRESSION: 1. No acute disease.
[2025-03-21 06:07] VITALS: PULSE 111; RESP 16; O2SAT 97
--- NOTE | 2025-03-21 06:44 | Physician Documentation ---
History of Present Illness ~ Chief Complaint: Asthma Stated Complaint: SOB Time Seen by MD: 06:16 Primary Medical Doctor: FABIAN Sosa Mode of Arrival: POV HPI 24-year-old male with a history of asthma presenting with increased onset coughing and wheezing for the past couple of days. The patient states that last night was very bad as he was coughing all night and could not sleep. The cough has mainly been dry. He has used up all of his albuterol inhalers and now is out. He states that they were helping very much. He denies any other associated symptoms such as fever, chills, nausea, vomiting or any other associated symptoms. The patient states that his primary care physician has tried multiple controller inhalers and so far known have worked. Right now he is only using albuterol and uses it several times a day every day. Medication Reconciliation Allergies: Coded Allergies: Iodinated Contrast Media (Verified Allergy, Severe, ANAPHYLAXIS, 03/21/25) Scheduled Albuterol Sulfate (Proventil Hfa), 2 PUFFS INH Q4H Diclofenac Sodium (Voltaren Arthritis Pain), 1 APPLIC .SEE ORDER 5XD Lidocaine (Lidoderm), 1 PATCH TOP DAILY Meclizine HCl (Meclizine HCl), 1-2 TAB PO Q8H Meloxicam* (Meloxicam*), 1 TAB PO DAILY Methocarbamol (Methocarbamol), 1 TAB PO Q8H Sucralfate (Carafate), 1 TAB PO Q6H Past Medical History Past Medical History: Asthma, Extremity Fracture, Anxiety Past Surgical History: no surgical history Alcohol Use: None Drug Use: none Lives with: Family Lives In: Home Review of Systems All Other Systems at this time: Reviewed and Negative Physical Exam Vital Signs: Temperature: 97.8, Heart Rate: 104, Respiratory Rate: 16, BP: 138/82, Pulse Oximetry: 97, Weight: 108.550 Oxygen Flow Rate: 0 Physical Exam I have reviewed the triage vitals. CONST: Well developed and well nourished. In no acute distress HENT: Head Atraumatic EYES: Pupils are equal, round and reactive to light. Normal conjunctiva NECK: Normal range of motion. Supple. CARDIO: Normal rate and regular rhythm. No murmurs, rubs, or gallops. S1, S2. PULM/CHEST: No respiratory distress. Sparse expiratory wheezes auscultated bilaterally. No rhonchi or rales ABD: Soft and nontender. Nondistended. Bowel sounds normal. No guarding. : Exam deferred MSK: No edema. No deformity. NEURO: Alert and oriented to person, place and time. Moving all extremities SKIN: Warm and dry. PSYCH: Normal mood and affect. Good eye contact. Progress Results/Orders Results/Orders Completed Orders - ZACHARIAH ALLEN MD Methylprednisolone Sod Succ (Solumedrol (03/21/25 06:40) Ipratropium/Albuterol Nebule (Ipratrop/A (03/21/25 06:40) Normal Saline 1000ml (Sodium Chloride 10 (03/21/25 06:40) Medications Received in ER Medications (Trade) Dose Ordered Sig/Antoni Route PRN Reason Start Time Stop Time Status Last Admin Dose Admin (Proventil 2.5 MG/3ML nebule) 2.5 mg ONCE ONCE NEB 03/21/25 05:50 03/21/25 05:51 DC 03/21/25 05:54 2.5 MG (SoluMEDROL 125mg inj) 125 mg ONCE ONCE IV 03/21/25 06:40 03/21/25 06:43 DC 03/21/25 07:00 125 MG (ipratrop/ albuterol 0.5-3(2.5) MG/3ml nebule) 3 ml NOW ONCE NEB 03/21/25 06:40 03/21/25 06:45 DC 03/21/25 07:17 3 ML Sodium Chloride 1,000 ml @ 1,000 mls/hr ONCE ONCE IV 03/21/25 06:40 03/21/25 07:39 DC 03/21/25 07:00 1,000 MLS/HR Vital Signs 03/21/25 03/21/25 03/21/25 03/21/25 05:37 05:52 05:57 06:00 Temp 97.8 Pulse 127 125 126 114 Resp 24 22 18 22 B/P (MAP) 139/81 122/79 (93) 132/87 (102) Pulse Ox 93 93 97 99 O2 Delivery Room Air* O2 Flow Rate 0 0 FiO2 21 03/21/25 03/21/25 03/21/25 03/21/25 06:01 06:07 06:14 07:18 Pulse 111 104 99 Resp 16 16 13 B/P (MAP) 138/82 (100) Pulse Ox 97 97 96 O2 Delivery Room Air* Room Air* O2 Flow Rate 0 0 FiO2 21 21 03/21/25 07:24 Pulse 94 Resp 12 Pulse Ox 100 O2 Delivery Room Air* O2 Flow Rate 0 FiO2 21 EKG/XRAY/CT/US/VASC/MRI EKG : Additional Comment EKG as interpreted by me shows sinus tachycardia, no signs of ischemia, normal axis Chest X-Ray : Interpreted By: both Views: 1 VIEW Additional Comments CHEST RADIOGRAPH Indication: CP Technique: Single frontal view of the chest was obtained COMPARISON: DI CHEST,SINGLE VIEW on DOS: 12/06/24 FINDINGS: Lines and Tubes: None Lungs: Clear Pleura: No effusion. No pneumothorax. Cardiomediastinal contours: Unremarkable Bones: Unremarkable IMPRESSION: 1. No acute disease. Medical Decision Making Additional Infomation This is a 24-year-old male with poorly controlled asthma presenting with a acute asthma exacerbation. Patient initially was of short of breath although his oxygen saturation was acceptable. He was given two rounds of DuoNeb breathing treatments as well as 125 mg of IV Solu-Medrol with good improvement of symptoms. On reassessment his wheeze is had cleared and he was breathing a lot more comfortably. From the history it appears the patient does not have adequate control of his asthma. He is not on any type of controller medication and only takes his rescue inhaler but has to take it several times daily. The patient needs to be started on a controller medication as well. I did start the patient on fluticasone inhaler and advised him to use this every day. Additionally I did start him on montelukast as it appears that he has tried other controller medications in the past without good results. I gave him a refill of his albuterol as well as a course of prednisone for his acute exacerbation. The patient was advised to monitor her symptoms very closely for improvement and resolution. He was advised that he needs close follow up with his PCP and also preferably referral to pulmonology. He was advised to return to the ED with any worsening symptoms. Departure Disposition: HOME / SELF CARE / HOMELESS Impression: Primary Impression: Acute asthma Condition: Improved Discharge Instructions: Asthma Attack Prevention, Adult Referrals: NO PRIMARY CARE PROVIDER (PCP) Prescriptions Fluticasone Furoate (Arnuity Ellipta) 100 Mcg Blst.w.dev 1 PUFFS INH DAILY for 30 Days, #1 EA 0 Refills Prov: ZACHARIAH ALLEN MD 03/21/25 Montelukast Sodium (MONTELUKAST SODIUM) 10 Mg Tablet 1 TAB PO DAILY for 30 Days, #30 TAB 0 Refills Prov: ZACHARIAH ALLEN MD 03/21/25 Prednisone (Prednisone) 10 Mg Tablet 0 PO DAILY, #42 TABLET Take 6 tabs/day x2 days then 5 daily x2 days 4 daily x2 days 3 daily x2 days 2 daily x2 days 1 daily x2 days then stop. Prov: ZACHARIAH ALLEN MD 03/21/25 albuterol inhaler (Pro-Air Inhaler) 8.5 Gm Inhaler 2 PUFFS INH Q4HPRN PRN for wheezing for 30 Days, #18 GM Prov: ZACHARIAH ALLEN MD 03/21/25 Comments 1. Take medications as prescribed 2. Monitor symptoms for improvement and resolution 3. Follow up closely with primary care physician as well as a firmware manager 4. Return to the ED with any acutely worsening or nonresolving symptoms. Education Educated: Patient Educated regarding: diagnosis, treatment, prognosis Additional Comment 1. Take medications as prescribed 2. Monitor symptoms for improvement and resolution 3. Follow up closely with primary care physician as well as a firmware manager 4. Return to the ED with any acutely worsening or nonresolving symptoms. Signature Scribe Signature: 1 Attestation: 1 ZACHARIAH ALLEN MD Mar 21, 2025 06:44
[2025-03-21] MEDS: methylPREDNISolone sod succ 125mg/2ml vial IV ONE (07:00)
[2025-03-21] MEDS: normal saline 1000ml 1,000 ML IV ONE (07:00)
[2025-03-21] MEDS: ipratropium/albuterol 3ml nebule NEB ONE (07:17)
[2025-03-21 07:18] VITALS: PULSE 99; RESP 13; O2SAT 96
[2025-03-21 07:24] VITALS: PULSE 94; RESP 12; O2SAT 100
[2025-03-21] MEDS ORDERED: PRED10TA23 PO (08:45)
[2025-03-21] MEDS ORDERED: ALBU8HFA INH (08:45)
[2025-03-21] MEDS ORDERED: FLUT100B3 INH (08:48)
[2025-03-21] MEDS ORDERED: MONT-40 PO (08:48)
[2025-03-21 09:23] VITALS: BP 113/84; PULSE 102; RESP 15; O2SAT 94
== END 2025-03-21 09:27 | disposition home or self-care (01) ==
LOC: ER 05:36
DX: J45.909 Unspecified asthma, uncomplicated (principal); F41.9 Anxiety disorder, unspecified; Z91.041 Radiographic dye allergy status; Z79.899 Other long term (current) drug therapy
CPT/HCPCS: 71045; 93005; 94640; 96361; 96374; 99284; J2919; J7030; 94760; 96366; A4615

== ENCOUNTER 2025-07-26 15:08 | Emergency (ER) | payer MEDICAID, OTHER ==
[~2025-07-26] VITALS: Ht 180.3 cm; Wt 118.0 kg
[~2025-07-26 15:08] MED LIST changes: +FLUT100B3 INH; +LIDO-52 TOP; -LIDO700A32 TOP; +MONT-40 PO
[2025-07-26 15:11] VITALS: TEMP 97.2
--- NOTE | 2025-07-26 15:56 | Physician Documentation ---
History of Present Illness ~ Chief Complaint: Abscess Stated Complaint: CYST ON LOWER BACK Time Seen by MD: 16:45 [facility] H[facility] This is a 24-year-old male with a history of Hidradenitis Suppurativa who presents with an area of pain and swelling to his lower back/upper buttocks area. Patient reports no fevers or other systemic symptoms. Tetanus Within 5 Years: No Medication Reconciliation Allergies: Coded Allergies: Iodinated Contrast Media (Verified Allergy, Severe, ANAPHYLAXIS, 03/21/25) Scheduled Albuterol Sulfate (Proventil Hfa), 2 PUFFS INH Q4H Diclofenac Sodium (Voltaren Arthritis Pain), 1 APPLIC .SEE ORDER 5XD Fluticasone Furoate (Arnuity Ellipta), 1 PUFFS INH DAILY Lidocaine (Lidoderm), 1 PATCH TOP DAILY Meclizine HCl (Meclizine HCl), 1-2 TAB PO Q8H Meloxicam* (Meloxicam*), 1 TAB PO DAILY Methocarbamol (Methocarbamol), 1 TAB PO Q8H Montelukast Sodium (Montelukast Sodium), 1 TAB PO DAILY Sucralfate (Carafate), 1 TAB PO Q6H Sulfamethoxazole/Trimethoprim (Bactrim Ds Tablet), 1 TAB PO Q12H Past Medical History Past Medical History: Asthma, Extremity Fracture, Anxiety Past Surgical History: no surgical history Alcohol Use: None Drug Use: none Lives with: Family Lives In: Home Review of Systems ROS As stated above in the HPI, otherwise all systems are reviewed and negative. Physical Exam Vital Signs: Temperature: 97.2, Heart Rate: 119, Respiratory Rate: 16, BP: 14 2/79, Pulse Oximetry: 98, Weight: 118.000 Oxygen Flow Rate: 0 Physical Exam VITALS: Reviewed and as above. GENERAL: Alert, nontoxic appearing, no apparent distress. RESPIRATORY: No increased work of breathing, no respiratory distress, speaking in full clear sentences SKIN: Central lower 5 cm x 5 cm round area of erythema, tenderness, and fluctuance with minimal surrounding erythema and induration Procedures I & D Procedure : Site: Lower back Anesthesia: Lidocaine w/ Epi Volume Anesthetic (mls): 9 Blade Size: 11 Prep/Supplies: drapes applied Incision: mass incised, pus drained Tolerated Procedure Well?: yes, no complications Progress Results/Orders Results/Orders Orders - JORI,LEANN W [employer] CUSTODIAN Cult (Aer) Routine C&S+Gram St (07/26/25 16:53) Laceration/I&D Tray Set Up (07/26/25 16:53) Consent For Procedure (07/26/25 ) Completed Orders - LEANN HSIEH Lidocaine 1% W/Epi 1:100,000 (Xylocaine (07/26/25 16:55) Ketorolac Trometh 15mg/Ml Vial (Toradol (07/26/25 16:55) Lidocaine/Prilocaine Cream (Emla Cream) (07/26/25 17:20) Sulfamethox/Trimetho. Ds Tab (Septra Ds (07/26/25 18:05) Vital Signs 07/26/25 07/26/25 15:11 18:40 Temp 97.2 Pulse 119 101 Resp 16 20 B/P (MAP) 142/79 140/74 Pulse Ox 98 99 O2 Flow Rate 0 Microbiology Date/Time Source Procedure Growth Status 07/26/25 18:00 Back Abscess Routine Culture - Preliminary Resulted Medical Decision Making Findings This otherwise healthy and well appearing 24-year-old male presents with pain and redness to skin of lower back consistent with uncomplicated abscess based on localized erythema and fluctuance with minimal surrounding induration on physical exam. History is reassuring as patient reports no fever, chills, or other system thing symptoms. There is no evidence of rapidly progressing symptoms, crepitus, pain out of proportion, pain away from site or other signs/symptoms concerning for necrotizing fasciitis, myositis, or other deep tissue infection. I considered other high-risk diagnoses such as acute osteomyelitis, deep space abscess, septic joint, foreign body, or deep vein thrombosis or septic phlebitis. Abscess was incised and drained without complication Physical exam is otherwise benign, patient is non-toxic and well-appearing, afebrile, and hemodynamically stable. Mild tachycardia attributed to pain. Patient medicated for pain prior to discharge. Patient is appropriate for outpatient follow up and will be discharged on course of oral antibiotics. Patient given strict return precautions including rapidly progressing symptoms, pain out of proportion/severe pain, mucosal involvement, and/or fever > 100.4. Differential Dx:Considerations: Include: Bacteremia, Cellulitis, Erysipelas, Gas gangrene, Hidrademitis suppurativa, Impetigo, Lymphangitis, Septicemia Departure Time of Disposition: 18:30 Disposition: 01 HOME / SELF CARE / HOMELESS Impression: Primary Impression: Abscess Condition: Improved Discharge Instructions: Abscess, Care After, Incision and Drainage Additional Instructions: Keep the area clean dry and covered, I recommend soaking the area with a warm moist compress 2 to 3 times a day and then cleaning the area. Clean the area and change the dressing at least once a day, more often if it becomes soiled. Please take the antibiotics as prescribed. Please follow up with your primary care provider in the next few days. Please return to the emergency department for any new or worsening concerning symptoms. Referrals: NO PRIMARY CARE PROVIDER (PCP) Prescriptions Sulfamethoxazole/Trimethoprim (Bactrim Ds Tablet) 800 Mg-160 Mg Tablet 1 TAB PO Q12H for 10 Days, #20 TAB Prov: LEANN HSIEH 07/26/25 Education Educated: Patient Educated regarding: diagnosis, treatment, prognosis, need for follow up Signature Scribe Signature: No scribe Attestation: The note accurately reflects work and decisions made by me.RAMO Arvizu 07/28/25 13:52 LEANN HSIEH Jul 26, 2025 15:56
[2025-07-26] MEDS: ketorolac trometh 15mg/ml vial 15 MG/ML ML IM ONE (17:18)
[2025-07-26] MEDS: LIDOcaine 1% W/epiNEPHrine 1:100,000 20ml vial IJ ONE (17:18)
[2025-07-26] MEDS: LIDOcaine/PRILOcaine 5gm cream TP ONE (17:46)
[2025-07-26] MEDS: sulfamethoxazole/trimethoprim DS (800/160mg) tablet PO ONE (18:36)
[2025-07-26] MEDS ORDERED: SULF1TAB49 PO (18:36)
[2025-07-26 18:40] VITALS: BP 140/74; PULSE 101; RESP 20; O2SAT 99
== END 2025-07-26 18:41 | disposition home or self-care (01) ==
LOC: ER 15:10
DX: L02.212 Cutaneous abscess of back [any part, except buttock and flank] (principal); J45.909 Unspecified asthma, uncomplicated; Z88.8 Allergy status to other drugs, medicaments and biological substances; Z91.041 Radiographic dye allergy status
CPT/HCPCS: 10060; 87070; 99283; J3490

== ENCOUNTER 2025-11-17 21:28 | Emergency (ER) | payer MEDICAID, OTHER ==
[~2025-11-17] VITALS: Ht 180.3 cm; Wt 111.4 kg
--- NOTE | 2025-11-18 00:03 | Physician Documentation ---
History of Present Illness ~ Chief Complaint: Mental Health Eval Stated Complaint: PANIC ATTACK Time Seen by MD: 23:18 Primary Medical Doctor: FABIAN Sosa Mode of Arrival: POV HPI This is a 24-year-old male who presents with progressively worsening anxiety and panic attacks over the last several months patient reports he recently he has had severe anxiety that prevents him from sleeping, patient reports he has follow up with a mental health professional in 11 days. Patient reports no other acute symptoms or concerns. Reports that he has been previously prescribed hydroxyzine which is not adequately controlling his symptoms. Medication Reconciliation Allergies: Coded Allergies: Iodinated Contrast Media (Verified Allergy, Severe, ANAPHYLAXIS, 03/21/25) Scheduled Albuterol Sulfate (Proventil Hfa), 2 PUFFS INH Q4H Diclofenac Sodium (Voltaren Arthritis Pain), 1 APPLIC .SEE ORDER 5XD Fluticasone Furoate (Arnuity Ellipta), 1 PUFFS INH DAILY Lidocaine (Lidoderm), 1 PATCH TOP DAILY Meclizine HCl (Meclizine HCl), 1-2 TAB PO Q8H Meloxicam* (Meloxicam*), 1 TAB PO DAILY Methocarbamol (Methocarbamol), 1 TAB PO Q8H Montelukast Sodium (Montelukast Sodium), 1 TAB PO DAILY Sucralfate (Carafate), 1 TAB PO Q6H Scheduled PRN Chlordiazepoxide Hcl (Librium), 25 MG PO BID PRN for anxiety Past Medical History Past Medical History: Asthma, Extremity Fracture, Anxiety Past Surgical History: no surgical history Alcohol Use: None Drug Use: none Lives with: Family Lives In: Home Review of Systems ROS As stated above in the HPI, otherwise all systems are reviewed and negative. Physical Exam Vital Signs: Temperature: 100.1, Source: Oral, Heart Rate: 113, Respiratory Rate: 16, BP: 132/81, Pulse Oximetry: 98, Weight: 111.400 Physical Exam VITALS: Reviewed and as above. GENERAL: Alert, nontoxic appearing, no apparent distress. RESPIRATORY: No increased work of breathing, no respiratory distress, speaking in full clear sentences NEURO: GCS 15 PSYCH: Anxious appearing, stating no HI or SI Progress Results/Orders Results/Orders Vital Signs 11/17/25 11/17/25 11/18/25 11/18/25 22:35 23:29 00:05 00:11 Temp 100.1 98.6 Pulse 113 99 Resp 16 16 20 20 B/P (MAP) 132/81 130/81 Pulse Ox 98 99 Medical Decision Making Additional information obtaine: N/A Findings Given patient report of severe anxiety disturbing daily activities and sleep with inadequate response to hydroxyzine patient will be prescribed a short course of Librium for anxiety symptoms. Patient is otherwise well-appearing reporting no other acute symptoms or concerns, additionally reassuring patient reporting no HI or SI. Physical exam benign patient appropriate for outpatient follow up. Patient provided careful return to care precautions, follow up instructions, and home care instructions. Differential Dx:Considerations: Include: Alcohol abuse, Anxiety, Bipolar disorder, Conversion disorder, Depression, Encephaloathy, Homicidal, Panic disorder, Personality disorder, Schizophrenia, Substance abuse, Suicidal Departure Time of Disposition: 00:03 Disposition: 01 HOME / SELF CARE / HOMELESS Impression: Primary Impression: Anxiety Condition: Improved Discharge Instructions: Panic Attack Additional Instructions: Please use the medication as prescribed. Please follow up with your primary care provider in the next few days. Please return to the emergency department for any new or worsening concerning symptoms. Referrals: NO PRIMARY CARE PROVIDER (PCP) Prescriptions Chlordiazepoxide Hcl (Librium) 25 Mg Capsule 25 MG PO BID PRN for anxiety for 5 Days, #10 CAP Prov: LEANN HSIEH 11/18/25 Education Educated: Patient Educated regarding: diagnosis, treatment, prognosis, need for follow up Signature Scribe Signature: No scribe Attestation: The note accurately reflects work and decisions made by me.RAMO Arvizu 11/18/25 11:15 LEANN HSIEH Nov 18, 2025 00:03
[2025-11-18] MEDS ORDERED: CHLO25CA10 PO (00:06)
[2025-11-18 00:11] VITALS: BP 130/81; PULSE 99; RESP 20; TEMP 98.6; O2SAT 99
[2025-11-18] MEDS ORDERED: QUET25TA PO (23:05)
== END 2025-11-18 00:14 | disposition home or self-care (01) ==
LOC: ER 21:29
DX: F41.9 Anxiety disorder, unspecified (principal); Z91.041 Radiographic dye allergy status; Z79.899 Other long term (current) drug therapy
CPT/HCPCS: 99283

== ENCOUNTER 2025-11-18 22:39 | Emergency (ER) | payer MEDICAID ==
[~2025-11-18] VITALS: Ht 180.3 cm; Wt 99.7 kg
[~2025-11-18 22:39] MED LIST changes: +CHLO25CA10 PO
[2025-11-18] MEDS ORDERED: QUET25TA PO (23:05)
--- NOTE | 2025-11-18 23:05 | Physician Documentation ---
History of Present Illness ~ Chief Complaint: Anxiety Stated Complaint: Anxiety Time Seen by MD: 22:56 [facility] 24-year-old male returns to the ED with ongoing panic attacks. He was prescribed Librium and hydro hydroxyzine both of which have not helped him. States he was up all last night with severe anxiety. He denies any HI or SI Medication Reconciliation Allergies: Coded Allergies: Iodinated Contrast Media (Verified Allergy, Severe, ANAPHYLAXIS, 03/21/25) Scheduled Albuterol Sulfate (Proventil Hfa), 2 PUFFS INH Q4H Diclofenac Sodium (Voltaren Arthritis Pain), 1 APPLIC .SEE ORDER 5XD Fluticasone Furoate (Arnuity Ellipta), 1 PUFFS INH DAILY Lidocaine (Lidoderm), 1 PATCH TOP DAILY Meclizine HCl (Meclizine HCl), 1-2 TAB PO Q8H Meloxicam* (Meloxicam*), 1 TAB PO DAILY Methocarbamol (Methocarbamol), 1 TAB PO Q8H Montelukast Sodium (Montelukast Sodium), 1 TAB PO DAILY Sucralfate (Carafate), 1 TAB PO Q6H Scheduled PRN Chlordiazepoxide Hcl (Librium), 25 MG PO BID PRN for anxiety Past Medical History Past Medical History: Asthma, Extremity Fracture, Anxiety Past Surgical History: no surgical history Alcohol Use: None Drug Use: none Lives with: Family Lives In: Home Review of Systems All Other Systems at this time: Reviewed and Negative ROS As stated above in the HPI, otherwise all systems are reviewed and negative. Physical Exam Vital Signs: Temperature: 98.0, Heart Rate: 120, Respiratory Rate: 18, BP: 114/73, Pulse Oximetry: 98, Weight: 99.700 Oxygen Flow Rate: 0 Physical Exam General: Alert, no apparent distress. Neurologic: Oriented x4. Psychiatric: Anxious appearing Skin: Normal color, warm and dry. No edema, no ecchymosis. Progress Results/Orders Results/Orders Vital Signs 11/18/25 22:40 Temp 98.0 Pulse 120 Resp 18 B/P (MAP) 114/73 Pulse Ox 98 O2 Flow Rate 0 Medical Decision Making Additional information obtaine: old records Findings Patient truly needs to consult with Psychiatry and intensive counseling. I decided to start him on Seroquel has a think he will benefit more from that then Librium. I told him not to take the two together. Differential Dx:Considerations: Include: Alcohol abuse, Anxiety, Bipolar dis order, Conversion disorder, Depression, Encephaloathy, Homicidal, Panic disorder, Personality disorder, Schizophrenia, Substance abuse, Suicidal, Other Departure Disposition: 01 HOME / SELF CARE / HOMELESS Impression: Primary Impression: Anxiety Additional Impression: Panic attack Discharge Instructions: Panic Attack Referrals: NO PRIMARY CARE PROVIDER (PCP) Prescriptions Quetiapine Fumarate (SEROQUEL) 25 Mg Tablet 2 TAB PO HS for 30 Days, #60 TAB 0 Refills Prov: CAMILO SALVADOR NP 11/18/25 CAMILO SALVADOR NP Nov 18, 2025 23:05
[2025-11-18] MEDS: QUETIAPINE 50 MG TAB.SR.24H PO ONE (23:21)
[2025-11-18 23:28] VITALS: BP 115/70; PULSE 115; RESP 20; TEMP 98.6; O2SAT 99
== END 2025-11-18 23:29 | disposition home or self-care (01) ==
LOC: ER 22:40
DX: F41.9 Anxiety disorder, unspecified (principal); Z91.041 Radiographic dye allergy status; Z79.899 Other long term (current) drug therapy
CPT/HCPCS: 99283

== ENCOUNTER 2025-11-23 01:12 | Emergency (ER) | payer MEDICAID ==
[~2025-11-23] VITALS: Ht 180.3 cm; Wt 112.2 kg
[~2025-11-23 01:12] MED LIST changes: +QUET25TA PO
[2025-11-23 01:27] VITALS: BP 127/88; PULSE 112; RESP 18; TEMP 98; O2SAT 96
[2025-11-24] MEDS ORDERED: ZOLP-679 PO (04:52)
[2025-11-24] MEDS ORDERED: HYDR-3686 PO (05:07)
[2025-11-24] MEDS ORDERED: TRAZ-256 PO (05:07)
== END 2025-11-23 06:13 | disposition left against medical advice (07) ==
LOC: ER 01:12
DX: F41.9 Anxiety disorder, unspecified (principal); Z53.21 Procedure and treatment not carried out due to patient leaving prior to being seen by health care provider; Z88.8 Allergy status to other drugs, medicaments and biological substances
CPT/HCPCS: 99281

== ENCOUNTER 2025-11-24 03:38 | Emergency (ER) | payer MEDICAID ==
[~2025-11-24] VITALS: Ht 180.3 cm; Wt 111.8 kg
--- NOTE | 2025-11-24 04:42 | Physician Documentation ---
History of Present Illness ~ Chief Complaint: Anxiety Stated Complaint: ANXIETY Time Seen by MD: 04:30 Primary Medical Doctor: DR. ODELL HPI Patient presents to the emergency room with continued anxiety and insomnia. He is here last night and given Seroquel but feels like it made things worse. He also feels like hydroxyzine and trazodone made things worse. He has a primary care appointment in five days Medication Reconciliation Allergies: Coded Allergies: Iodinated Contrast Media (Verified Allergy, Severe, ANAPHYLAXIS, 03/21/25) Scheduled Albuterol Sulfate (Proventil Hfa), 2 PUFFS INH Q4H Diclofenac Sodium (Voltaren Arthritis Pain), 1 APPLIC .SEE ORDER 5XD Fluticasone Furoate (Arnuity Ellipta), 1 PUFFS INH DAILY Hydroxyzine Hcl* (Atarax*), 2 TAB PO HS Lidocaine (Lidoderm), 1 PATCH TOP DAILY Meclizine HCl (Meclizine HCl), 1-2 TAB PO Q8H Meloxicam* (Meloxicam*), 1 TAB PO DAILY Methocarbamol (Methocarbamol), 1 TAB PO Q8H Montelukast Sodium (Montelukast Sodium), 1 TAB PO DAILY Quetiapine Fumarate (Seroquel), 2 TAB PO HS Sucralfate (Carafate), 1 TAB PO Q6H Trazodone HCl (Trazodone HCl), 1 TAB PO HS Scheduled PRN Chlordiazepoxide Hcl (Librium), 25 MG PO BID PRN for anxiety Past Medical History Past Medical History: Asthma, Extremity Fracture, Anxiety Past Surgical History: no surgical history Alcohol Use: None Drug Use: none Lives with: Family Lives In: Home Review of Systems ROS All review of systems negative except as per HPI Physical Exam Vital Signs: Temperature: 98.0, Heart Rate: 99, Respiratory Rate: 18, BP: 129/75, Pulse Oximetry: 97, Weight: 111.820 Oxygen Flow Rate: 0 Physical Exam General: Patient is awake, alert, oriented x4 in no acute distress Head: Normocephalic and atraumatic. Eyes: Conjunctival normal. EOMI. PERRL. ENT: Mucous membranes moist. Neck: Supple, trachea is midline. Chest: Clear to auscultation bilaterally without rales, rhonchi, or wheezes. There is no accessory muscle use or retractions. Cardiac: RRR without murmurs, gallops, or rubs. Psych: Cooperative, anxious, good eye contact Progress Results/Orders Results/Orders Completed Orders - ALEXIS MANZANARES MD Zolpidem Tablet (Ambien Tablet) (11/24/25 04:55) Alprazolam Tablet (Xanax Tablet) (11/24/25 04:55) Vital Signs 11/24/25 11/24/25 11/24/25 03:48 04:25 05:26 Temp 98.0 98.6 Pulse 104 99 82 Resp 16 18 18 B/P (MAP) 128/75 129/75 (93) 123/80 Pulse Ox 96 97 99 O2 Flow Rate 0 0 Medical Decision Making Additional information obtaine: old records Findings Patient presents to the emergency room with continued anxiety and insomnia. Patient has been given a prescription for Librium that has well as Seroquel that has well as trazodone in his previously used hydroxyzine. I do not doubt that he has significant anxiety and insomnia however he denies any SI/HI in his this juncture I do not feel he is gravely disabled. I will treat him acutely for insomnia. I will give him prescriptions for additional medications for sleep. The absolute necessity to follow up with his doctor discussed. ER precautions regarding SI/HI discussed. Differential Dx:Considerations: Include: Alcohol abuse, Anxiety, Bipolar disorder, Conversion disorder, Depression, Encephaloathy, Homicidal, Panic disorder, Personality disorder, Schizophrenia, Substance abuse, Suicidal, Other Departure Disposition: 01 HOME / SELF CARE / HOMELESS Impression: Primary Impression: Anxiety Condition: Fair Discharge Instructions: Insomnia Referrals: NO PRIMARY CARE PROVIDER (PCP) Prescriptions Hydroxyzine Hcl* (Atarax*) 25 Mg Tablet 2 TAB PO HS, #30 TAB Prov: ALEXIS MANZANARES MD 11/24/25 Trazodone HCl (Trazodone HCl) 100 Mg Tablet 1 TAB PO HS, #6 TAB 0 Refills Prov: ALEXIS MANZANARES MD 11/24/25 Education Educated: Patient Educated regarding: diagnosis, treatment, need for follow up Signature Scribe Signature: No scribe Attestation: The note accurately reflects work and decisions made by me.Alexis Manzanares MD 11/24/25 05:07 ALEXIS MANZANARES MD Nov 24, 2025 04:42
[2025-11-24] MEDS ORDERED: ZOLP-679 PO (04:52)
[2025-11-24] MEDS ORDERED: TRAZ-256 PO (05:07)
[2025-11-24] MEDS ORDERED: HYDR-3686 PO (05:07)
[2025-11-24 05:26] VITALS: BP 123/80; PULSE 82; RESP 18; TEMP 98.6; O2SAT 99
== END 2025-11-24 05:28 | disposition home or self-care (01) ==
LOC: ER 03:39
DX: F41.9 Anxiety disorder, unspecified (principal); G47.00 Insomnia, unspecified; Z91.041 Radiographic dye allergy status; Z79.899 Other long term (current) drug therapy
CPT/HCPCS: 99283